=== PATIENT | female | born 1950 | race Asian ===

== ENCOUNTER 2021-03-25 09:38 | Outpatient (CLI) | payer OTHER, BC | END 2021-03-25 09:39 | disposition critical access hospital (66) | LOC: EMS 09:38 | DX: Z04.1 Encounter for examination and observation following transport accident (principal); R42 Dizziness and giddiness | CPT/HCPCS: A0425; A0429 ==

== ENCOUNTER 2021-03-25 09:45 | Emergency (ER) | payer OTHER, BC ==
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
[2021-03-25 10:10] LABS: BASOPHILS % (AUTO) 0.2 %; EOSINOPHILS # (AUTO) 0.1 10^3/uL (0.0-0.7); EOSINOPHILS % (AUTO) 1.5 %; HCT - HEMATOCRIT 40.6 % (37.0-47.0); HGB - HEMOGLOBIN 13.2 g/dL (12.0-16.0); LYMPHOCYTES # (AUTO) 2.1 10^3/uL (1.5-3.5); LYMPHOCYTES % (AUTO) 26.6 %; MEAN CORPUSCULAR HEMOGLOBIN 29.9 pg (27.0-31.0); MEAN CORPUSCULAR HGB CONC 32.5 g/dL (32.0-36.0); MEAN CORPUSCULAR VOLUME 91.9 fL (81.0-99.0); MEAN PLATELET VOLUME 9.5 fL (7.9-10.8); MONOCYTES # (AUTO) 0.6 10^3/uL (0.0-1.0); MONOCYTES % (AUTO) 7.5 %; NEUTROPHILS # (AUTO) 5.1 10^3/uL (1.5-6.6); NEUTROPHILS % (AUTO) 63.7 %; PLT - PLATELET COUNT 196 10^3/uL (130-450); RED BLOOD COUNT 4.42 10^6/uL (4.20-5.40); RED CELL DISTRIBUTION WIDTH 12.9 % (12.0-15.0)
[2021-03-25 10:16] LABS: INR 1.4 (0.8-1.2); PT - PROTHROMBIN TIME 15.3 secs (9.9-12.6)
[2021-03-25 10:22] LABS: ALBUMIN 4.2 g/dL (3.2-5.5); ALBUMIN/GLOBULIN RATIO 1.6 (1.0-2.2); CALCIUM 9.1 mg/dL (8.5-10.3); CREATININE 0.7 mg/dL (0.4-1.0); POTASSIUM 3.9 mmol/L (3.5-5.0); TOTAL PROTEIN 6.8 g/dL (6.7-8.2)
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
[2021-03-25 11:35] VITALS: BP 144/77
== END 2021-03-25 11:57 | disposition home or self-care (01) ==
LOC: ED 09:45
DX: S50.12XA Contusion of left forearm, initial encounter (principal); S40.011A Contusion of right shoulder, initial encounter; S20.211A Contusion of right front wall of thorax, initial encounter; V43.52XA Car driver injured in collision with other type car in traffic accident, initial encounter; Z86.711 Personal history of pulmonary embolism; Z79.01 Long term (current) use of anticoagulants
CPT/HCPCS: 36415; 80053; 83690; 85025; 85610; 99282; 99284